=== PATIENT | female | born 1970 | race Caucasian/White ===

== ENCOUNTER 2021-07-11 20:50 | Emergency (ER) | payer BC ==
[~2021-07-11 20:50] MED LIST: ADDERALL20 MG PO; CIPROFLOXACIN500 MG PO; FIORICET 325 MG1 TAB PO; FIORTAL 325 MG-1 TAB PO; FLEXERIL5 MG PO; HYDROCODONE BIT1 T11 PO; IBUPROFEN 30 M800 MG PO; MEDROL DOSEPAK4 MG PO; MOTRIN600 MG PO; MOTRIN800 MG PO; NAPROSYN500 MG PO; NORCO 325 MG-51 TAB PO; PYRIDIUM200 MG PO; TOPAMAX2 MG PO; ULTRAM50 MG PO; VALIUM10 MG PO; ZOFRAN ODT4 MG SL
[2021-07-11 21:04] VITALS: BP 118/91
[2021-07-11 22:31] LABS: BASO % 0.2 % (0.0-1.0); EOS % 0.5 % (1.0-4.0); HEMATOCRIT 38.2 % (37.0-47.0); LYMPH # 1.7 10*3/uL (1.3-4.4); LYMPH % 20.1 % (27.0-41.0); MEAN CELL VOLUME 96.5 fl (81.0-99.0); MEAN CORPUSCULAR HGB 32.8 pg (27.0-31.0); MEAN PLATELET VOLUME 10.3 fl (9.6-12.3); MONO # 0.6 10*3/uL (0.1-1.0); MONO % 7.3 % (3.0-9.0); NEUT % 71.7 % (47.0-73.0); PLATELET COUNT AUTOMATED 192 10*3/uL (130-400); RED BLOOD COUNT 3.96 10*6/uL (4.10-5.10); WHITE BLOOD COUNT 8.4 10*3/uL (4.8-10.8)
[2021-07-11 22:48] LABS: ALBUMIN 3.6 gm/dl (3.1-4.5); ALKALINE PHOSPHATASE 75 U/L (45-117); BUN 18 mg/dl (7-24); CHLORIDE 110 mmol/L (98-107); CREATININE 0.77 mg/dL (0.55-1.02); POTASSIUM 3.8 mmol/L (3.5-5.1); SGOT/AST 38 IU/L (3-35); SGPT/ALT 34 U/L (12-78); SODIUM 141 mmol/L (136-145); TROPONIN I < 0.015 ng/ml (<0.045)
[2021-07-12] MEDS ORDERED: ULTRAM50 MG PO (00:54)
[2021-07-12] MEDS ORDERED: BACITRACIN28.4 GM T (00:54)
[2021-07-12] MEDS ORDERED: ZOFRAN4 MG PO (00:54)
[2021-07-12] MEDS ORDERED: CEPHALEXIN500 M1 PO (00:58)
== END 2021-07-12 01:37 | disposition home or self-care (01) ==
LOC: ED 20:50
PROVIDERS: Emergency Medicine
DX: S92.401A Displaced unspecified fracture of right great toe, initial encounter for closed fracture (principal); S92.402A Displaced unspecified fracture of left great toe, initial encounter for closed fracture; S80.812A Abrasion, left lower leg, initial encounter; S80.212A Abrasion, left knee, initial encounter; S80.211A Abrasion, right knee, initial encounter; V49.9XXA Car occupant (driver) (passenger) injured in unspecified traffic accident, initial encounter; Y93.89 Activity, other specified; Y92.89 Other specified places as the place of occurrence of the external cause; Y99.8 Other external cause status

== ENCOUNTER → 2021-07-17 | Outpatient (CLI) | payer BC ==
[~2021-07-17] MED LIST changes: +BACITRACIN28.4 GM T; +CEPHALEXIN500 M1 PO; +ZOFRAN4 MG PO
== END ==
LOC: WOUNDCARE 04:03
PROVIDERS: ATTEND Nurse Practitioner Family
DX: S81.801A Unspecified open wound, right lower leg, initial encounter (principal); M79.661 Pain in right lower leg; R22.41 Localized swelling, mass and lump, right lower limb; Z90.49 Acquired absence of other specified parts of digestive tract; Z90.710 Acquired absence of both cervix and uterus; Z98.890 Other specified postprocedural states; Z79.899 Other long term (current) drug therapy; V49.9XXA Car occupant (driver) (passenger) injured in unspecified traffic accident, initial encounter; Y93.9 Activity, unspecified; Y92.89 Other specified places as the place of occurrence of the external cause; Y99.8 Other external cause status

== ENCOUNTER → 2021-07-24 | Outpatient (CLI) | payer BC | LOC: WOUNDCARE 00:43 | PROVIDERS: ATTEND Nurse Practitioner Family | DX: S81.801D Unspecified open wound, right lower leg, subsequent encounter (principal); M79.661 Pain in right lower leg; R22.41 Localized swelling, mass and lump, right lower limb; X58.XXXD Exposure to other specified factors, subsequent encounter ==

== ENCOUNTER 2022-10-31 11:49 | Emergency (ER) | payer BC ==
[~2022-10-31] VITALS: Ht 167.6 cm; Wt 80.7 kg
[2022-10-31 11:59] VITALS: BP 111/75
[2022-10-31] MEDS ORDERED: POTASSIUM CHLO10 ME4 PO (12:01)
[2022-10-31] MEDS ORDERED: OMEPRAZOLE40 MG PO (12:01)
[2022-10-31] MEDS ORDERED: ADIPEX-P37.5 MG PO (12:02)
[2022-10-31 12:45] LABS: HEMATOCRIT 44.2 % (37.0-47.0); MEAN CELL VOLUME 94.8 fl (81.0-99.0); MEAN CORPUSCULAR HGB 33.5 pg (27.0-31.0); MEAN CORPUSCULAR HGB CONC 35.3 g/dl (33.0-37.0); MEAN PLATELET VOLUME 9.6 fl (9.6-12.3); PLATELET COUNT AUTOMATED 188 10*3/uL (130-400); RED BLOOD COUNT 4.66 10*6/uL (4.10-5.10); RED CELL DISTRI WIDTH 11.7 % (0-14.5); WHITE BLOOD COUNT 8.6 10*3/uL (4.8-10.8)
[2022-10-31 12:46] LABS: MANUAL DIFF REFLEX YES
[2022-10-31 12:47] LABS: BILIRUBIN Negative (Negative); BLOOD Trace-Lysed (Negative); CLARITY Clear (Clear); COLOR Yellow (Yellow); GLUCOSE Negative (Negative); KETONE Trace (Negative); LEUKO ESTERASE 2+ (Negative); NITRITE Positive (Negative); PH 5.5 (4.5-8.0); SPECIFIC GRAVITY >= 1.030 (1.001-1.030)
[2022-10-31 12:54] LABS: BACTERIA 3+; MUCOUS 2+; WBC 21-30 wbc/hpf (0-5)
[2022-10-31 13:02] LABS: ALKALINE PHOSPHATASE 65 U/L (46-116); BUN 11 mg/dl (9-23); CHLORIDE 104 mmol/L (98-107); LIPASE 33 U/L (12-53); POTASSIUM 4.1 mmol/L (3.4-5.1); SGPT/ALT 26 U/L (10-49); TOTAL PROTEIN 7.1 gm/dL (6.0-8.0)
[2022-10-31 13:04] LABS: OVALOCYTES FEW; PLATELET SUFFICIENCY NORMAL (NORMAL); POLYCHROMASIA SLIGHT; TOTAL CELLS COUNTED 100 #CELLS; TOXIC GRANULATION SLIGHT
[2022-10-31] MEDS ORDERED: ONDANSETRON4 MG SL (14:16)
[2022-10-31] MEDS ORDERED: OMNICEF300 MG PO (14:16)
== END 2022-10-31 14:39 | disposition home or self-care (01) ==
LOC: ED 11:49
PROVIDERS: Family Medicine
DX: N39.0 Urinary tract infection, site not specified (principal); Z88.8 Allergy status to other drugs, medicaments and biological substances; Z90.49 Acquired absence of other specified parts of digestive tract; Z98.51 Tubal ligation status; Z20.822 Contact with and (suspected) exposure to COVID-19

== ENCOUNTER → 2023-09-29 | Outpatient (CLI) | payer BC ==
[~2023-09-29] MED LIST changes: +ADIPEX-P37.5 MG PO; +OMEPRAZOLE40 MG PO; +OMNICEF300 MG PO; +ONDANSETRON4 MG SL; +POTASSIUM CHLO10 ME4 PO
[2023-09-29 16:13] LABS: BASO % 0.7 % (0.0-1.0); EOS # 0.1 10*3/uL (0.0-0.4); EOS % 1.7 % (1.0-4.0); HEMATOCRIT 38.4 % (37.0-47.0); LYMPH # 2.2 10*3/uL (1.3-4.4); LYMPH % 37.6 % (27.0-41.0); MEAN CELL VOLUME 95.5 fl (81.0-99.0); MEAN CORPUSCULAR HGB 32.1 pg (27.0-31.0); MEAN CORPUSCULAR HGB CONC 33.6 g/dl (33.0-37.0); MEAN PLATELET VOLUME 9.5 fl (9.6-12.3); MONO # 0.5 10*3/uL (0.1-1.0); MONO % 7.9 % (3.0-9.0); NEUT % 51.9 % (47.0-73.0); PLATELET COUNT AUTOMATED 227 10*3/uL (130-400); RED BLOOD COUNT 4.02 10*6/uL (4.10-5.10); RED CELL DISTRI WIDTH 11.9 % (0-14.5); WHITE BLOOD COUNT 5.8 10*3/uL (4.8-10.8)
[2023-09-29 16:41] LABS: ALKALINE PHOSPHATASE 88 U/L (46-116); BUN 9 mg/dl (9-23); CHLORIDE 109 mmol/L (98-107); SGPT/ALT 20 U/L (5-49); TOTAL PROTEIN 6.8 gm/dL (6.0-8.0)
[2023-09-29 16:43] LABS: VITAMIN D, 25-HYDROXY 46.4 ng/mL (30-100)
== END | disposition home or self-care (01) ==
LOC: LAB 15:51
PROVIDERS: ATTEND Specialist
DX: K91.2 Postsurgical malabsorption, not elsewhere classified (principal); Z98.84 Bariatric surgery status

== ENCOUNTER → 2024-04-07 | Outpatient (CLI) | payer BC ==
[2024-04-07 09:34] LABS: BASO % 0.6 % (0.0-1.0); EOS % 0.6 % (1.0-4.0); LYMPH # 1.5 10*3/uL (1.3-4.4); LYMPH % 29.7 % (27.0-41.0); MEAN CELL VOLUME 95.2 fl (81.0-99.0); MEAN CORPUSCULAR HGB 32.8 pg (27.0-31.0); MEAN CORPUSCULAR HGB CONC 34.5 g/dl (33.0-37.0); MEAN PLATELET VOLUME 9.9 fl (9.6-12.3); MONO # 0.3 10*3/uL (0.1-1.0); NEUT # 3.3 10*3/uL (2.3-7.9); NEUT % 62.9 % (47.0-73.0); PLATELET COUNT AUTOMATED 206 10*3/uL (130-400); RED BLOOD COUNT 3.99 10*6/uL (4.10-5.10); RED CELL DISTRI WIDTH 11.9 % (0-14.5); WHITE BLOOD COUNT 5.2 10*3/uL (4.8-10.8)
[2024-04-07 10:01] LABS: ALKALINE PHOSPHATASE 60 U/L (46-116); BUN 7 mg/dl (9-23); CHLORIDE 108 mmol/L (98-107); CHOLESTEROL 152 mg/dL (<200); LDL CHOLESTEROL 84 mg/dL (9-159); POTASSIUM 3.9 mmol/L (3.4-5.1); SGPT/ALT 12 U/L (5-49); TOTAL PROTEIN 6.6 gm/dL (6.0-8.0); TRIGLYCERIDES 92 mg/dl (<150)
[2024-04-07 10:58] LABS: VITAMIN D, 25-HYDROXY 95.6 ng/mL (30-100)
== END | disposition home or self-care (01) ==
LOC: LAB 09:12
PROVIDERS: ATTEND Internal Medicine
DX: Z00.00 Encounter for general adult medical examination without abnormal findings (principal)